=== PATIENT | female | born 1950 | race Caucasian/White ===

== ENCOUNTER 2016-12-30 10:40 | Day surgery (SDC) | payer OTHER ==
[~2016-12-30] VITALS: Ht 170.2 cm; Wt 69.4 kg
[~2016-12-30 10:40] MED LIST: BUPR100T7 PO; Lactated Ringer's 1,000 ML IV ONE; SERT20OR6 PO
[2016-12-30] MEDS ORDERED: Propofol 10,000 mCg/mL 20 mL Inj ONE (10:41)
[2016-12-30 11:12] VITALS: BP 122/76; PULSE 71; RESP 14; O2SAT 95
[2016-12-30] MEDS ORDERED: SERT50TA9 PO (11:18)
[2016-12-30] MEDS ORDERED: SERT20OR6 PO (11:18)
[2016-12-30] MEDS ORDERED: Lactated Ringer's 1,000 ML IV SCH (12:08)
--- NOTE | 2016-12-30 12:08 | PCM.HPANE ---
Patient Data Date of Service: December 30, 2016 Surgeon Admitting Provider: Attending Provider:Ivy Ventura MD Primary Care Physician:Hilaria Prajapati Other Provider:Ronaldo Brady Anesthesia Reason for Visit Colon Cancer Screening Ht/WT & BMI Height (Feet): 5 Height (Inches): 7 Weight (Kilograms): 69.4 Body Mass Index 24.00 Allergies Coded Allergies: No Known Allergies (Verified Allergy, Unknown, 12/29/16) Past Anesthesia History Anesthesia History: Denies:: Abnormal Airway, Anesthesia Reactions, Difficult Intubation, Fam Anesthesia Reaction, Fam Malignant Hypertherm, Malignant Hyperthermia Diabetes History Hx Diabetes?: No MRSA MRSA: No Medications Hypertension Medication: No Reported Medications Sertraline HCl (Sertraline)50 Mg Bthkyd99 Mg PO DAILY 30 Days Ref 0 12/30/16 Bupropion ER (Wellbutrin SR)100 Mg Tablet.er150 Mg PO BID Ref 0 07/22/16 Discontinued Reported Medications Sertraline HCl (Sertraline)20 Mg/1 Ml Oral.conc50 Mg PO DAILY #1 BOTTLE Ref 0 12/30/16 Sertraline HCl (Sertraline)20 Mg/1 Ml Oral.conc50 Mg PO DAILY #1 BOTTLE Ref 0 07/22/16 History History of ENT Problems?: No HEENT History: Denies:: Abnormal Airway Difficult Intubation Hearing Problem Denture Type: None Teeth Condition: Within Normal Limits Hx of Heart Problems?: Yes Cardiovascular History: Positive for:: Pacemaker (AUG 2011 RBBB) Denies:: AICD Atrial Fibrillation Chest Pain Hypertension Valvular Heart Disease Hx of Respiratory Problem?: Yes Respiratory History: Positive for:: Use of C-PAP Machine Hx Neurologic Problems?: No Neurological History: Denies:: CVA Hx of GI Problems?: No Hx of Problems?: No Hx Musculoskeletal Problems?: No Musculoskeletal History: Denies:: Joint Replacement Hx of Psycho/Social Problems?: Yes Psycho Social History: Positive for:: Anxiety Hx Depression Hx Surgeries?: Yes (T&A,) Hx Any Other Health Problems?: Yes Hx Diabetes: No Hx Alcohol Use: No Stop/Bang Treated for Sleep Apnea?: Yes Do You Have a CPAP Machine?: Yes Risk Assessment Category Category 1A: Patient has history of documented sleep apnea, and HAS NOT received any narcotic, sedative or anesthesia administration during this stay. Category 1B: Patient has history of documented sleep apnea, and HAS received any narcotic , sedative or anesthesia administration during this stay Category 2: Patient has SUSPECTED Obstructive Sleep Apnea, and HAS received any narcotic , sedative or anesthesia administration during this stay. Category 3: Patient has SUSPECTED Obstructive Sleep Apnea and HAS NOT received narcotic, sedative or anesthesia administration during this stay. Category 4: Outpatient in Procedural Areas with known sleep apnea or who screen positive for High Risk via the STOP/BANG questionnaire. Exam Exam Vital Signs Vital Signs Date Time Temp Pulse Resp B/P Pulse Ox O2 Delivery O2 Flow Rate FiO2 12/30/16 11:12 71 14 122/76 95 Room Air General Appearance: Alert, Oriented X3 HEENT/AIRWAY: MP 1 Lungs: Clear to Auscultation Heart: Exam Unremarkable Meds/Labs/Diagnostics Admission Meds Current Medications Lactated Ringer's (Lr) 1,000 ml @ 10 mls/hr Q24H ONCE IV Last administered on 12/30/16t 11:54; Start 12/30/16 at 06:00; Stop 12/31/16 at 05:59 Plan Impression Patient chart reviewed, patient interviewed and anesthestic plan with risks, benefits, and alternatives discussed, and informed consent obtained. NPO per Anesth. Guidelines: Yes ASA Physical Status: ASA2 Mod Systemic Disease Anesthetic Plan: MAC Bene/Risks/Altern/Consents: Yes HP Complete Prior to Induction: Yes Jono Ashby MD December 30, 2016 12:08
[2016-12-30] MEDS ORDERED: Ondansetron 2 mg/mL 2 mL Inj IVPUSH PRN (12:10)
[2016-12-30] MEDS ORDERED: MetoCLOpramide 5 mg/mL 2 mL Inj IVPUSH PRN (12:10)
[2016-12-30 12:14] VITALS: BP 100/58; PULSE 65; RESP 14; O2SAT 95
[2016-12-30 12:24] VITALS: BP 119/62; PULSE 62; RESP 16; O2SAT 98
[2016-12-30 12:34] VITALS: BP 112/62; PULSE 63; RESP 16; O2SAT 99
--- NOTE | 2016-12-30 13:02 | PCM.ANEP1 ---
Post Anesthesia Phase 1 PACU Phase 1 Assessment Date of Service: December 30, 2016 Vital Signs Vital Signs Date Time Temp Pulse Resp B/P Pulse Ox O2 Delivery O2 Flow Rate FiO2 12/30/16 12:34 63 16 112/62 99 Room Air 12/30/16 12:24 62 16 119/62 98 Room Air 12/30/16 12:14 36.4 65 14 100/58 95 Room Air 12/30/16 11:12 71 14 122/76 95 Room Air Anesthetic Administered: MAC Level of Alertness: Awake, talking Pain: No Nausea or Vomiting: No Cardiovascular Function and Hy: Yes Lungs: Clear to Auscultation Complications: No Follow up Care: No Jono Ashby MD December 30, 2016 13:02
--- NOTE | 2016-12-30 14:08 | ENDO ---
[address] [address] ENDOSCOPY PROCEDURE PATIENT: MAYITO THORNTON : 1950 MR#: [id number] ADMIT: 12/30/2016 JOB ID: [id number] DATE OF SERVICE: 12/30/2016 PROCEDURE PERFORMED: Colonoscopy. INDICATIONS: The patient had a previous endoscopy in which a polyp in the ascending colon was identified. However, secondary to the poor prep, we lost sight of the polyp and therefore, she has been brought back today of the a two-day prep. ASA CLASSIFICATION, MALLAMPATI SCORE AND MEDICATIONS: The patient's ASA classification, Mallampati score and medications are as per anesthesia note. INSTRUMENT USED: [id number]. PREPARATION QUALITY: Fair. PROCEDURE DETAILS: After informed consent was obtained, the patient was brought into the GI suite, where she was placed on oxygen via nasal cannula and monitored with continuous pulse oximeter, telemetry, and blood pressure monitoring. A time-out was performed. Then, she was placed in the left lateral decubitus position and medications were administered for sedation. Digital rectal exam was performed which was unremarkable. The colonoscope was then inserted into the rectum and advanced under direct visualization to the cecum, which was identified by the presence of the ileocecal valve and appendiceal orifice. Once the cecum was reached, the colonoscope was withdrawn back into the rectum, as the mucosa and lumen were examined. In the rectum, retroflexion was performed. Following retroflexion, remaining air in the rectum was suctioned, and procedure was completed. FINDINGS: 1. In the proximal ascending colon there was an approximately 7 mm flat polyp with adherent mucus. The appearance of the polyp was consistent with a serrated polyp. The polyp was lifted using normal saline and then removed with a hot snare. The resulting mucosal defect was approximated with the placement of one hemoclip. The remainder the colon exam was otherwise unremarkable. The previously placed tattoo in the distal ascending colon was identified. 2. Retroflexed views in the rectum revealed small to moderate-sized internal hemorrhoids. IMPRESSION: 1. Ascending colon polyp. 2. Previously placed tattoo in the distal ascending colon. 3. Small to moderate-sized internal hemorrhoids. RECOMMENDATIONS: 1. Avoid NSAIDs and anticoagulants for 72 hours. 2. Repeat colonoscopy in three years. COMPLICATIONS: None. ESTIMATED BLOOD LOSS: Less than 5 mL.
--- NOTE | 2016-12-31 15:10 | PATH ---
SURGICAL PATHOLOGY Attending Physician:Anastasiia Ramon CASE STATUS: Signed Out PATIENT NAME: MAYITO THORNTON PID: [id number] : 1950 DATE COLLECTED:12/30/2016 21:38 SPECIMEN: Colon, Biopsy CLINICAL HISTORY: 1). ASCENDING COLON POLYP FINAL DIAGNOSIS: 1.ASCENDING COLON POLYP: SESSILE SERRATED ADENOMA. ICD10 CODE D12.2 GROSS DESCRIPTION: The specimen is received in one formalin filled container labeled with the patient's name, sublabeled "ascending colon polyp" and consists of a 0.9 x 0.6 x 0.4 CM portion of tissue. The specimen is entirely submitted in one cassette. 12/30/2016 DAC MICRO DESCRIPTION: See diagnosis. ICD-9 CODES: CPT CODES: 1: 61224 Electronically Signed Out Epifanio Chance MD [facility] Pathology [facility] [address], [place] [address] Technical component performed at [facility], [facility] [address], [address]
== END 2016-12-30 23:59 | disposition home or self-care (01) ==
LOC: END 10:40
PROVIDERS: ATTEND Internal Medicine Gastroenterology
DX: Z12.11 Encounter for screening for malignant neoplasm of colon (principal); Z86.010 Personal history of colon polyps; D12.2 Benign neoplasm of ascending colon; K64.8 Other hemorrhoids; I45.10 Unspecified right bundle-branch block; F32.9 Major depressive disorder, single episode, unspecified; F41.9 Anxiety disorder, unspecified; G47.33 Obstructive sleep apnea (adult) (pediatric); Z95.0 Presence of cardiac pacemaker
CPT/HCPCS: 45381; 45382; 45385; J7120